=== PATIENT | female | born 1965 | race Caucasian/White ===

== ENCOUNTER 2017-06-03 19:50 | Emergency (ER) | payer SELFPAY ==
[2017-06-03] MEDS ORDERED: Ondansetron ODT 4 MG TAB ONE (20:17)
[2017-06-03] MEDS ORDERED: Oseltamivir 75 MG CAP ONE (20:17)
== END 2017-06-03 20:26 | disposition home or self-care (01) ==
LOC: BURERS 19:50
DX: J11.1 Influenza due to unidentified influenza virus with other respiratory manifestations (principal); I10 Essential (primary) hypertension; M32.9 Systemic lupus erythematosus, unspecified; F17.210 Nicotine dependence, cigarettes, uncomplicated; Z79.891 Long term (current) use of opiate analgesic; Z79.899 Other long term (current) drug therapy
CPT/HCPCS: 99283; Q0162

== ENCOUNTER 2017-06-08 09:50 | Emergency (ER) | payer SELFPAY ==
[2017-06-08] MEDS ORDERED: Ondansetron ODT 4 MG TAB ONE (10:07)
== END 2017-06-08 10:55 | disposition home or self-care (01) ==
LOC: BURERS 09:50
DX: R11.2 Nausea with vomiting, unspecified (principal); I10 Essential (primary) hypertension; F17.210 Nicotine dependence, cigarettes, uncomplicated; M32.9 Systemic lupus erythematosus, unspecified
CPT/HCPCS: 99283; Q0162

== ENCOUNTER 2017-09-13 10:54 | Emergency (ER) | payer SELFPAY | END 2017-09-13 11:13 | disposition home or self-care (01) | LOC: BURERS 10:54 | DX: I10 Essential (primary) hypertension (principal); F17.210 Nicotine dependence, cigarettes, uncomplicated; Z79.899 Other long term (current) drug therapy | CPT/HCPCS: 99283 ==

== ENCOUNTER 2017-10-16 13:54 | Emergency (ER) | payer SELFPAY ==
[2017-10-16] MEDS ORDERED: Ondansetron HCl/PF 4 MG/2 ML Vial ONE (14:20)
[2017-10-16 14:32] LABS: Clarity Clear (Clear)
[2017-10-16 14:33] LABS: Bilirubin Negative (Negative); Blood, Urine Trace (Negative); Glucose, Urine (Dipstick) Negative (Negative); Leukocyte Negative (Negative); Nitrite Negative (Negative); Protein, Urine (Dipstick) Negative (Neg-Trace); Urobilinogen 0.2 mg/dL (0.2-1.0); pH, Urine 5.5 (5.0-9.0)
[2017-10-16 14:35] LABS: Bacteria/HPF 1+ HPF (None Seen); RBC/HPF 0-3 HPF (0-3); Squamous Epithelial 0-3 HPF (0-3); WBC/HPF 0-3 HPF (0-3)
[2017-10-16 14:42] LABS: ALT (SGPT) 17 U/L (8-55); AST (SGOT) 16 U/L (5-34); Albumin 4.6 g/dL (3.5-5.0); Alkaline Phosphatase 110 U/L (40-150); Anion Gap 18 mmol/L (10-20); BUN (Urea Nitrogen) 14 mg/dL (7.0-18.7); Bilirubin, Total 0.7 mg/dL (0.2-1.2); Calc. Creatinine Clearance 0 mL/min (70-130); Calcium 10.6 mg/dL (7.8-10.44); Carbon Dioxide 24 mmol/L (22-29); Chloride 101 mmol/L (98-107); Estimated GFR-MDRD 64; Globulin 3.9 g/dL (2.4-3.5); Glucose 141 mg/dL (70-105); Potassium 4.3 mmol/L (3.5-5.1); Protein, Total 8.5 g/dL (6.0-8.3); Sodium 139 mmol/L (136-145)
[2017-10-16 14:43] LABS: #Basophils 0.1 thou/uL (0.0-0.2); #Eosinphils 0.1 thou/uL (0.0-0.7); #Lymphocytes 2.5 thou/uL (1.20-3.40); #Monocytes 0.3 thou/uL (0.11-0.59); #Neutrophils 6.5 thou/uL (1.40-6.50); %Basophils 1.4 % (0.0-1.0); %Eosinophils 0.8 % (0.0-10.0); %Lymphocytes 25.9 % (21.0-51.0); %Monocytes 3.6 % (0.0-10.0); %Neutrophils 68.3 % (42.0-75.0); Hemoglobin 16.5 g/dL (12.0-16.0); Mean Corpuscular HGB CONC 36.2 g/dL (32.0-36.0); Mean Corpuscular Volume 82.8 fL (78.0-98.0); Mean Platelet Volume 6.5 fL (7.4-10.4); Platelet Count 323 thou/uL (130-400); RBC Distribution Width 11.6 % (11.5-14.5); Red Blood Cell (RBC) Count 5.49 mill/uL (4.20-5.40); White Blood Cell (WBC) Count 9.5 thou/uL (4.8-10.8)
== END 2017-10-16 15:03 | disposition home or self-care (01) ==
LOC: BURERS 13:54
DX: E86.0 Dehydration (principal); I10 Essential (primary) hypertension; F17.210 Nicotine dependence, cigarettes, uncomplicated; Z79.899 Other long term (current) drug therapy
CPT/HCPCS: 80053; 81003; 81015; 85025; 96374; J2405

== ENCOUNTER 2018-01-02 14:13 | Emergency (ER) | payer SELFPAY ==
[2018-01-02] MEDS ORDERED: Neomycin-Polymyxin-Hc 7.5 ML BOT ONE (14:56)
[2018-01-02] MEDS ORDERED: Sulfameth/Trimethoprim DS 800-160mg TAB ONE (14:56)
== END 2018-01-02 15:12 | disposition home or self-care (01) ==
LOC: BURERS 14:13
DX: S80.862A Insect bite (nonvenomous), left lower leg, initial encounter (principal); S80.861A Insect bite (nonvenomous), right lower leg, initial encounter; L03.116 Cellulitis of left lower limb; L03.115 Cellulitis of right lower limb; H10.9 Unspecified conjunctivitis; I10 Essential (primary) hypertension; F17.210 Nicotine dependence, cigarettes, uncomplicated; Z79.899 Other long term (current) drug therapy; W57.XXXA Bitten or stung by nonvenomous insect and other nonvenomous arthropods, initial encounter
CPT/HCPCS: 99282

== ENCOUNTER 2018-07-27 02:33 | Emergency (ER) | payer SELFPAY ==
[2018-07-27] MEDS ORDERED: Sulfameth/Trimethoprim DS 800-160mg TAB ONE (02:57)
== END 2018-07-27 02:59 | disposition home or self-care (01) ==
LOC: BURERS 02:33
DX: H65.92 Unspecified nonsuppurative otitis media, left ear (principal); I10 Essential (primary) hypertension; F17.210 Nicotine dependence, cigarettes, uncomplicated; Z79.891 Long term (current) use of opiate analgesic; Z79.899 Other long term (current) drug therapy
CPT/HCPCS: 99282

== ENCOUNTER 2019-03-23 11:34 | Emergency (ER) | payer SELFPAY ==
[2019-03-23] MEDS ORDERED: Dexamethasone 4 MG TAB ONE (12:23)
[2019-03-23] MEDS ORDERED: Sulfameth/Trimethoprim DS 800-160mg TAB ONE (12:32)
== END 2019-03-23 12:37 | disposition home or self-care (01) ==
LOC: BURERS 11:34
DX: J01.90 Acute sinusitis, unspecified (principal); B02.9 Zoster without complications; F17.210 Nicotine dependence, cigarettes, uncomplicated; I10 Essential (primary) hypertension
CPT/HCPCS: 99283; J8540

== ENCOUNTER 2019-06-02 11:11 | Emergency (ER) | payer SELFPAY | END 2019-06-02 11:37 | disposition home or self-care (01) | LOC: BURERS 11:11 | DX: J02.9 Acute pharyngitis, unspecified (principal); I10 Essential (primary) hypertension; M79.7 Fibromyalgia; F17.210 Nicotine dependence, cigarettes, uncomplicated; Z79.899 Other long term (current) drug therapy | CPT/HCPCS: 99283 ==

== ENCOUNTER 2025-03-16 18:27 | Emergency (ER) | payer OTHER ==
[~2025-03-16 18:27] MED LIST: Iopamidol 370 76% 100 ML VIAL ONE
[2025-03-16] MEDS ORDERED: Aspirin Chewable 81 MG TAB ONE (18:51)
[2025-03-16 19:05] LABS: #Basophils 0.2 thou/uL (0.0-0.2); #Eosinophils 0.1 thou/uL (0.0-0.7); #Lymphocytes 3.9 thou/uL (1.20-3.40); #Monocytes 0.7 thou/uL (0.11-0.59); #Neutrophils 8.8 thou/uL (1.40-6.50); %Basophils 1.2 % (0.0-1.0); %Eosinophils 0.4 % (0.0-10.0); %Lymphocytes 28.7 % (21.0-51.0); %Monocytes 5.0 % (0.0-10.0); %Neutrophils 64.7 % (42.0-75.0); Hematocrit 51.8 % (36.0-47.0); Hemoglobin 16.6 g/dL (12.0-16.0); Mean Corpuscular Hemoglobin 31.7 pg (27.0-31.0); Mean Corpuscular Volume 98.8 fl (78.0-98.0); Platelet Count 245 10x3/uL (130-400); Red Blood Cell (RBC) Count 5.24 mill/uL (4.20-5.40); White Blood Cell (WBC) Count 13.5 10x3/uL (4.8-10.8)
[2025-03-16] MEDS ORDERED: Orphenadrine Citrate 60 MG/2 ML VIAL ONE (19:14)
[2025-03-16 19:24] LABS: ALT (SGPT) 15 U/L (Less than 34); AST (SGOT) 32 U/L (11-34); Albumin 4.0 g/dL (3.1-4.5); Alkaline Phosphatase 74 U/L (40-110); Anion Gap 18 mmol/L (10-20); BUN (Urea Nitrogen) 7 mg/dL (9.8-20.1); Bilirubin, Total 0.3 mg/dL (0.3-1.2); CK (CPK) 71 U/L (29-168); Calc. Creatinine Clearance 0 mL/min (70-130); Calcium 9.0 mg/dL (7.8-10.44); Carbon Dioxide 21 mmol/L (22-29); Chloride 105 mmol/L (98-107); Globulin 3.1 g/dL (2.4-3.5); Glucose 99 mg/dL (70-105); Magnesium 1.9 mg/dL (1.6-2.6); Potassium 3.6 mmol/L (3.5-5.1); Sodium 140 mmol/L (136-145)
[2025-03-16 19:25] LABS: Troponin I 0.021 ng/mL (< 0.028)
[2025-03-16] MEDS ORDERED: Ketorolac Tromethamine 30 MG (1 mL) VIAL ONE (21:31)
[2025-03-16] MEDS ORDERED: Enoxaparin 100 MG (1 mL) SYRINGE ONE (21:31)
[2025-03-16 23:15] LABS: Troponin I 0.017 ng/mL (< 0.028)
[2025-03-17] MEDS ORDERED: HYDROcodone/Acetaminophen 5/325 mg Tablet ONE (01:41)
== END 2025-03-17 03:06 | disposition short-term general hospital (02) ==
LOC: BURERS 18:27
DX: I20.0 Unstable angina (principal); E86.0 Dehydration; R51.9 Headache, unspecified; I10 Essential (primary) hypertension; F17.210 Nicotine dependence, cigarettes, uncomplicated; Z79.899 Other long term (current) drug therapy
CPT/HCPCS: 36415; 70450; 71045; 71275; 80053; 82550; 83735; 83880; 84484; 85025; 85379; 87040; 87081; 87428; 87430; 93005; 96361; 96372; 96374; 96375; J1650; J1885; J2360; J2919; Q9967

== ENCOUNTER 2025-03-23 13:20 | Emergency (ER) | payer OTHER | END 2025-03-23 14:32 | disposition home or self-care (01) | LOC: BURERS 13:20 | DX: J06.9 Acute upper respiratory infection, unspecified (principal); J20.8 Acute bronchitis due to other specified organisms; B34.9 Viral infection, unspecified; I10 Essential (primary) hypertension; F17.210 Nicotine dependence, cigarettes, uncomplicated | CPT/HCPCS: 87428; 99283 ==